=== PATIENT | female | born 1950 | race Caucasian/White ===

== ENCOUNTER → 2016-08-05 | Outpatient (CLI) | payer MEDICARE ==
--- NOTE | 2016-08-05 09:00 | CT ---
EXAM DESCRIPTION: CT ABDOMEN PELVIS WITHOUT IV CONTRAST CLINICAL HISTORY: LEFT LOWER QUADRANT PAIN COMPARISON: None. TECHNIQUE: Transaxial images were obtained without intravenous or oral contrast media. Sagittal and coronal reconstruction was performed. FINDINGS: Minimal atelectatic type parenchymal changes observed at the right lung base. The liver and spleen are normal in appearance. No biliary ductal dilatation is observed. The gallbladder is been previously removed. Surgical clips are seen in the region of the gallbladder fossa. No adrenal masses are detected. The pancreas is normal in appearance. Mild cortical atrophy is observed in the right kidney. No hydronephrosis mass cyst or calcification is detected. Calcific atherosclerotic change is observed in the abdominal aorta without evidence of aneurysmal dilatation. No inguinal region abnormality is detected. Diverticulosis of the colon is observed. There is minimal stranding about the descending colon which may represent early evidence of diverticulitis. No abscess is detected. The patient is post hysterectomy. Degenerative changes are observed the lower lumbar spine. No free fluid is observed. IMPRESSION: 1. Diverticulosis is observed with minimal stranding about descending colon suggesting diverticulitis. No abscess is detected. 2. Cholecystectomy. 3. Hysterectomy Electronically signed by: Ramsey Taylor MD 08/05/2016 08:58
== END ==
LOC: CT 08:26
PROVIDERS: ATTEND Family Medicine
DX: K57.30 Diverticulosis of large intestine without perforation or abscess without bleeding (principal); Z90.49 Acquired absence of other specified parts of digestive tract; Z90.710 Acquired absence of both cervix and uterus

== ENCOUNTER → 2016-08-05 | Outpatient (CLI) | payer MEDICARE | LOC: GMAJ 10:16 | PROVIDERS: ATTEND Family Medicine | DX: R53.82 Chronic fatigue, unspecified (principal); E55.9 Vitamin D deficiency, unspecified ==

== ENCOUNTER → 2016-08-15 | Outpatient (CLI) | payer MEDICARE ==
--- NOTE | 2016-08-16 10:55 | CT ---
EXAM DESCRIPTION: CT HEAD WITHOUT IV CONTRAST CLINICAL HISTORY: 66 y/o F, HEADACHE COMPARISON: None. TECHNIQUE: Noncontrast spiral CT of the brain. FINDINGS: No intracranial hemorrhage, acute cortical infarction or mass lesion. White matter disease with patchy and confluent decreased density throughout the bilateral cerebral hemispheres, nonspecific likely a manifestation of remote microvascular ischemia. Atherosclerotic vascular calcifications of the cavernous carotid arteries Ventricles are normal in size and configuration No calvarial or skullbase fracture. No fluid in the paranasal sinuses or mastoid air cells IMPRESSION: White matter disease, nonspecific most likely remote microvascular ischemia Electronically signed by: Jese Hardin MD 08/16/2016 10:53
== END ==
LOC: CT 09:55
PROVIDERS: ATTEND Family Medicine
DX: R51 Headache (principal); R90.82 White matter disease, unspecified

== ENCOUNTER → 2016-11-03 | Outpatient (CLI) | payer MEDICARE | END | disposition home or self-care (01) | LOC: GMA 12:38 | PROVIDERS: ATTEND Nurse Practitioner Acute Care | DX: L65.8 Other specified nonscarring hair loss (principal); E53.9 Vitamin B deficiency, unspecified; E55.9 Vitamin D deficiency, unspecified ==

== ENCOUNTER → 2016-11-21 | Outpatient (CLI) | payer OTHER ==
--- NOTE | 2016-11-21 15:51 | MAM ---
History: Well woman exam. Date of exam: 11/21/2016 Services provided: Bilateral full field digital screening mammography. CAD, the images were reviewed with R2 computer aided detection. FINDINGS: Glandular tissue is nodular in contour with slightly increased mammographic density. No prior study is currently available for comparison. A right breast medial mammographic asymmetry approximately 6 cm from the nipple right breast 3-4 o'clock and left breast nodular asymmetry approximately 3 to 4 cm from the nipple retroareolar 1:00 IMPRESSION: Incomplete study Recommendation: Directed bilateral breast sonography, right breast 3-4 o'clock retroareolar and deep within the glandular tissue and left breast 12-1 o'clock periareolar. BIRAD CATEGORY: 0 INCOMPLETE Electronically signed by: Kelsea Adamson MD 11/21/2016 3:45 PM CDT
== END | disposition home or self-care (01) ==
LOC: MAMMO 10:59
PROVIDERS: ATTEND Family Medicine
DX: Z12.31 Encounter for screening mammogram for malignant neoplasm of breast (principal)

== ENCOUNTER → 2017-01-05 | Outpatient (CLI) | payer OTHER | LOC: GMA 14:51 | PROVIDERS: ATTEND Nurse Practitioner Acute Care | DX: N39.0 Urinary tract infection, site not specified (principal) ==

== ENCOUNTER → 2017-01-12 | Outpatient (CLI) | payer OTHER ==
--- NOTE | 2017-01-12 16:42 | US ---
History: Bilateral breast nodules. Services: 01/12/2017 Services provided: Bilateral targeted Limited breast sonography. FINDINGS: Mammogram from 11/21/2016 is reviewed. Left breast periareolar 1:00 10 mm nodule is shown with internal vascularity. The nodule is isoechoic and well defined. Differential considerations include papilloma or fibroadenoma. The risk for malignancy is felt to be less likely but included for completeness. Right breast periareolar 3:00 10 mm nodule deep within the glandular tissue has irregular margination and dense posterior acoustic shadowing. Surrounding vascularity is shown without definite internal vascularity seen. Adjacent simple cyst more ventrally. Sonographic and mammographic appearance are suspicious for malignancy. IMPRESSION: Suspicious exam. Recommendation: Ultrasound-guided needle sampling right breast periareolar nodule 3:00 and left breast periareolar nodule 1:00 with differential considerations for each outlined in the body of the report. Findings and recommendations were discussed with the patient who is leaving for a one week vacation with her family. Upon her return she will follow up with Dr. Jeffery. BIRAD CATEGORY: 4 SUSPICIOUS FINDINGS Electronically signed by: Kelsea Adamson MD 01/12/2017 4:41 PM CDT Workstation: [id number]
== END | disposition home or self-care (01) ==
LOC: MAMMO 15:22
PROVIDERS: ATTEND Family Medicine
DX: Z12.31 Encounter for screening mammogram for malignant neoplasm of breast (principal)

== ENCOUNTER → 2017-02-03 | Outpatient (CLI) | payer OTHER ==
--- NOTE | 2017-02-03 13:23 | OP ---
DATE OF PROCEDURE: 02/03/17 PREOPERATIVE DIAGNOSIS: 1. Abnormal bilateral mammogram with solid masses. POSTOPERATIVE DIAGNOSIS: 1. Abnormal bilateral mammogram with solid masses. PROCEDURE: 1. Sonographically guided needle core biopsy, right and left breast mass. SURGEON: Kristopher Jeffery MD. WATER ENGINEER: None. ANESTHESIA: Local infiltration of 1% lidocaine. INDICATION: The patient is a 66-year-old female who on routine mammography was found to have masses in both breasts. She is status post cyst aspirations bilaterally and excision of benign lesion I believe on the left breast previously. She was brought to the Radiology Suite for ultrasound guided biopsy after the risks, benefits and alternatives to the procedure were discussed and accepted. FINDINGS: Cores were taken in both breasts which were identified from the mass using the ultrasound device. Pathology is pending. PROCEDURE: The patient is placed in the supine position. The right breast was examined and the mass was identified deep to a benign cyst. The breast was prepped with Betadine lateral to the ultrasound device and draped. Local infiltration of anesthesia was obtained. A stab wound was made with a 15 blade. The biopsy needle was then introduced under direct vision of the ultrasound, introduced to the mass and multiple cores were taken. Hemostasis was obtained with pressure, then a single 4-0 simple suture at the skin. When this was done, a band-aid was placed over the incision. New gloves and biopsy needle were obtained. The left breast was identified, the mass was identified. The breast lateral to the ultrasound device was prepped with Betadine and draped. Local infiltration of anesthesia was again obtained. Again, a stab wound was made with a 15 blade and, again, the biopsy needle was introduced under direct vision of the ultrasound device to the mass where the needles were taken. Again, hemostasis was obtained with pressure and a single suture of 4-0 Nylon. Sterile pressure dressing was applied. The specimens were sent for pathologic evaluation. The patient tolerated the procedure well. Estimated blood loss was less than 10 mL. #[id number] [facility]
--- NOTE | 2017-02-03 16:34 | US ---
History: Bilateral breast nodules. Ultrasound-guided biopsy: A total of 18 images are submitted. The images are labeled right breast 3:00 and left breast 1:00. The study demonstrates a needle traversing each at the sonographic nodules, the extent of the needle on the right breast 3:00 distally is difficult to assess however the needle does appear to traverse the nodule. No significant complication is demonstrated on the images provided. IMPRESSION: Technically successful ultrasound-guided biopsy right breast nodule 3:00 and left breast nodule 1:00, performed by the patient's surgeon. Electronically signed by: Kelsea Adamson MD 02/03/2017 4:33 PM CDT Workstation: [id number]
== END ==
LOC: US 11:23
PROVIDERS: ATTEND Surgery
DX: R92.8 Other abnormal and inconclusive findings on diagnostic imaging of breast (principal)

== ENCOUNTER → 2017-02-08 | Outpatient (CLI) | payer OTHER ==
--- NOTE | 2017-02-09 09:09 | RAD ---
EXAM DESCRIPTION: Chest,2 Views CLINICAL HISTORY: 66 years Female, MALIGNANT NEOPLASM OF UIQ OF RIGHT BREAST. C50.211 COMPARISON: None Available TECHNIQUE: PA/lateral FINDINGS: Minimal right basilar atelectatic type lung disease is observed. No pleural fluid is seen. The heart is within range of normal. IMPRESSION: Right basilar atelectatic type lung disease is observed. The chest is otherwise unremarkable. Electronically signed by: Ramsey Taylor MD 02/09/2017 9:08 AM CDT
== END ==
LOC: LAB.O 13:13
PROVIDERS: ATTEND Surgery
DX: C50.211 Malignant neoplasm of upper-inner quadrant of right female breast (principal)

== ENCOUNTER → 2017-02-09 | Outpatient (CLI) | payer OTHER ==
--- NOTE | 2017-02-09 14:33 | MRI ---
EXAM DESCRIPTION: Brain w/wo Contrast CLINICAL HISTORY: RT BREAST CA UIQ COMPARISON: None TECHNIQUE: Multiplanar, multi sequence MR images of the head are obtained with and without IV gadolinium contrast using standard imaging protocol. FINDINGS: The midline structures are not displaced. Sulci are age appropriate. The lateral, third, and fourth ventricles are normal in size, shape, and anatomic positioning. Normal landers-white differentiation is seen. Normal flow voids are seen in the major intracranial vessels including the dural venous sinuses. There is no evidence of mass, mass effect, hydrocephalus, or acute intracranial hemorrhage. No abnormal extra-axial fluid collections are seen. Moderate scattered foci of increased FLAIR/T2 signal are seen in the periventricular white matter and white matter of the centrum semiovale. Patchy increased FLAIR and T2 signal in the shine is seen. No diffusion restriction is identified. No abnormal enhancement is seen. Gradient echo unremarkable. The pituitary is unremarkable. Visualized paranasal sinuses are unremarkable. The visualized orbits and mastoid air cells are unremarkable. IMPRESSION: Age-appropriate atrophy with moderate old small vessel ischemic type changes are seen. No MRI evidence of metastatic disease to the brain. No MRI evidence of acute intracranial ischemia, mass, mass effect, or abnormal enhancement. Electronically signed by: Dez Landaverde MD 02/09/2017 2:32 PM CDT
--- NOTE | 2017-02-09 16:38 | NM ---
EXAM DESCRIPTION: Bone Scan, Whole Body CLINICAL HISTORY: RT BREAST CA COMPARISON: None Available. RADIOPHARMACEUTICAL: 28.5 mCi technetium 99 M MDP IV FINDINGS: Total body imaging was obtained. Minimal uptake is observed in the joints and spine consistent with arthritis. No evidence for fracture or metastatic disease is observed. IMPRESSION: 1. Negative for metastatic disease. Electronically signed by: Ramsey Taylor MD 02/09/2017 4:36 PM CDT
== END ==
LOC: NM 08:09
PROVIDERS: ATTEND Surgery
DX: C50.211 Malignant neoplasm of upper-inner quadrant of right female breast (principal)

== ENCOUNTER 2017-02-20 05:48 | Inpatient (IN) | payer OTHER ==
[2017-02-20] MEDS ORDERED: LACTATED RINGERS 1,000 ML ONE (06:27)
[2017-02-20] MEDS ORDERED: SODIUM CHL 0.9% 100ML MINI-BAG 100 ML IVPB ONE ×2 (06:27→11:50)
[2017-02-20] MEDS ORDERED: ceFAZolin SODIUM 1 GM VIAL ONE ×4 (06:28→19:14)
[2017-02-20] MEDS ORDERED: LACTATED RINGERS 1,000 ML BAG IVS ONE (07:45)
[2017-02-20] MEDS ORDERED: MIDAZOLAM INJ 5 MG/5 ML VIAL ONE (08:23)
[2017-02-20] MEDS ORDERED: CARBOXYMETHYLCELLULOSE 0.5% OPHTH SOL 0.4 ML UD ONE (08:23)
[2017-02-20] MEDS ORDERED: fentaNYL CITRATE INJ 50 MCG/ML AMP ONE (08:23)
--- NOTE | 2017-02-20 09:14 | HP ---
CHIEF COMPLAINT: Biopsy-proven carcinoma of the right breast. HISTORY OF PRESENT ILLNESS: The patient is a 66-year-old female who has a long history of multiple aspiration, but no breast biopsies that were anything that were cysts. She had an abnormal mammogram and underwent a needle core biopsy of a right breast lesion which revealed invasive carcinoma. She is admitted today for right modified radical mastectomy after the risks, benefits and alternatives including lumpectomy with either lymph node dissection with sentinel node biopsy and radiation therapy versus mastectomy with sentinel node biopsy versus modified radical mastectomy were discussed. PAST MEDICAL HISTORY: 1. Hypertension. 2. Chronic renal disease. 3. Chronic urinary tract infections. 4. Osteoarthritis. 5. Gastroesophageal reflux. PAST SURGICAL HISTORY: 1. Tonsillectomy. 2. Appendectomy. 3. Partial hysterectomy. 4. Cholecystectomy. 5. Colonoscopy. 6. Breast biopsy. FAMILY HISTORY: Positive for carcinoma of the colon in a 47-year-old sister who . SOCIAL HISTORY: The patient is , retired from working at a bank. There is no history of tobacco or alcohol abuse. No history of drug abuse. PHYSICAL EXAMINATION: GENERAL: The patient is awake, alert, cooperative, in no acute distress. VITAL SIGNS: The patient is currently afebrile, normotensive. HEENT: Sclerae nonicteric. Mucous membranes moist. NECK: Without adenopathy. There is no supraclavicular or axillary adenopathy noted. CHEST: Equal breath sounds bilaterally. HEART: Regular rate and rhythm. BREAST: The left breast is without skin lesion, mass or nipple discharge. The right breast reveals no discrete mass, no nipple discharge or skin changes. There is a healing needle core biopsy site at approximately 12 o'clock position. ABDOMEN: Without organomegaly or tenderness. PELVIC/RECTAL: Deferred. EXTREMITIES: Without cyanosis, clubbing or edema. LABORATORY: Clear urinalysis. Normal liver function tests. Normal bone scan. Clear chest x-ray. EKG reveals bradycardia at 58 beats per minute. ASSESSMENT: 1. Biopsy-prove carcinoma of the right breast. PLAN: Admission for right modified radical mastectomy under general anesthesia. #[id number] [facility]
[2017-02-20] MEDS ORDERED: ACETAMINOPHEN IV 1000MG 100 ML ONE (09:16)
[2017-02-20] MEDS ORDERED: HYDROmorphone HCL INJ 2 MG/ML VIAL ONE (09:39)
[2017-02-20] MEDS ORDERED: ELECTROLYTE-A 1,000 ML IVS ONE (10:13)
[2017-02-20] MEDS ORDERED: MORPHINE SULFATE INJ 10 MG/ML VIAL IV PRN (11:03)
[2017-02-20] MEDS ORDERED: HYDROcodone 5MG/APAP 325MG 1 EA TAB PO PRN (11:03)
[2017-02-20] MEDS ORDERED: ONDANSETRON INJ 4 MG/2 ML VIAL IV PRN (11:03)
[2017-02-20] MEDS ORDERED: LACTATED RINGERS 1,000 ML IVS ONE (11:08)
[2017-02-20] MEDS ORDERED: PANTOPRAZOLE SODIUM IV 40 MG VIAL IV SCH (11:30)
[2017-02-20] MEDS: ceFAZolin SODIUM 2 GM in SODIUM CHLORIDE 0.9% 100ML 100 ML IVPB SCH ×2 (11:45→18:08)
[2017-02-20] MEDS ORDERED: ceFAZolin SODIUM 1 GM VIAL IVPB ONE (11:55)
[2017-02-20] MEDS ORDERED: LIDOCAINE 1% 10 ML VIAL INJ ONE (12:00)
[2017-02-20] MEDS ORDERED: DEXAMETHASONE INJ 10 MG/ML VIAL IV ONE (12:00)
[2017-02-20] MEDS ORDERED: PROPOFOL 200 MG/20 ML VIAL IV ONE (12:00)
[2017-02-20] MEDS ORDERED: PHENYLEPHRINE INJ 1ML 10 MG/ML VIAL IV ONE (12:00)
[2017-02-20] MEDS ORDERED: raNITIdine HCL INJ 25 MG/ML VIAL IV ONE (12:00)
[2017-02-20] MEDS ORDERED: SODIUM CHLORIDE 0.9% 50 ML VIAL INJ ONE (12:00)
[2017-02-20] MEDS ORDERED: KETOROLAC TROMETHAMINE INJ 30 MG/ML VIAL IV ONE (12:00)
[2017-02-20] MEDS ORDERED: ePHEDrine SULF 50 MG/ML IV ONE (12:00)
[2017-02-20] MEDS ORDERED: GLYCOPYRROLATE 0.2 MG/ML VIAL IV ONE (12:00)
[2017-02-20] MEDS ORDERED: PANTOPRAZOLE SODIUM IV 40 MG VIAL IV ONE (12:03)
[2017-02-20] MEDS: ENOXAPARIN SODIUM 40 MG/0.4 ML SYG SUBCU SCH (12:04)
[2017-02-20] MEDS ORDERED: ENOXAPARIN SODIUM 40 MG/0.4 ML SYG SUBCU ONE (12:04)
[2017-02-20] MEDS: cefOXitin SODIUM 2 GM in SODIUM CHL 0.9% 50ML MIN-BAG+ 50 ML IVPB SCH ×2 (13:00→19:39)
[2017-02-20] MEDS ORDERED: SODIUM CHLORIDE 0.9% (FLUSH) 10 ML SYG IV PRN (13:02)
[2017-02-20] MEDS ORDERED: SODIUM CHL 0.9% 50ML MIN-BAG+ 50 ML IVPB ONE ×3 (13:08→19:17)
[2017-02-20] MEDS ORDERED: cefOXitin SODIUM 2 GM INJ IVPB ONE ×3 (13:09→19:17)
[2017-02-20] MEDS: LACTATED RINGERS 1,000 ML IVS PRN (13:22)
--- NOTE | 2017-02-20 13:28 | OP ---
DATE OF PROCEDURE: 02/20/17 PREOPERATIVE DIAGNOSIS: 1. Biopsy-proven carcinoma of the right breast. POSTOPERATIVE DIAGNOSIS: 1. Biopsy-proven carcinoma of the right breast. PROCEDURE: 1. Right modified radical mastectomy. SURGEON: Kristopher Jeffery MD. DIVISION OFFICER WEAPONS DEPARTMENT: None. ANESTHESIA: General laryngeal mask. INDICATION: The patient is a 66-year-old female who on routine mammography was found to have bilateral breast lesions. The left biopsy was consistent with a benign lesion and the right lesion at the 3 to 4 o'clock position in the right breast was invasive carcinoma. She was brought to the Surgical Suite today for mastectomy after the risks, benefits and alternatives to all options for treatment of the chest wall were discussed and a negative metastatic workup. FINDINGS: No surprisingly lesions or obvious lymphadenopathy were identified. The nerves were identified in the usual manner. PROCEDURE: After adequate general laryngeal mask anesthesia was obtained, the patient was prepped and draped in the usual sterile manner. The right breast, which had previously been marked in the Ambulatory Unit, was then marked for a mastectomy. The superior flap was then taken, first with a marking pen and then with a sharp knife, dissection down through the skin into the subcutaneous tissue was obtained using electrocautery. The Meena thyroid grasping forceps were then placed on the skin edge and the superior flap was elevated in the usual manner with electrocautery with the margins being the sternal margin medially, the clavipectoral fascia superiorly and into the axilla. When this was done, a moist sponge was placed under the flap and the inferior flap was taken in a like manner down to the rectus sheath inferiorly. When this was done , the breast was dissected free from the chest wall superiorly, medially and then laterally into the axilla. Axillary dissection was then done in the usual manner with the posterior margin being the nerves. The tissue was then removed en bloc using electrocautery and was sent for pathological inspection. The wound was then irrigated copiously with saline. The effluent was noted to be clear. Drains were placed in the usual manner through the inferior flap and sutured in place with 3-0 Nylon ligature. When this was done, hemostasis was noted to be adequate. The flaps were sutured together with running 3-0 Vicryl suture in the subcutaneous tissues. The skin edges were approximated with a skin stapler. Prior to the skin stapling, the wound was irrigated through the incision and aspirated with the drains. When this was done, a sterile pressure dressing was applied. The patient tolerated well. Estimated blood loss was no greater than 100 to 150 mL. All sponge, needle and instrument counts were correct. [facility][id number] [facility]
[2017-02-20] MEDS ORDERED: IV SET AND CAP CHANGE INJ INJ SCH (13:30)
--- NOTE | 2017-02-20 15:14 | CONS ---
DATE OF CONSULTATION: 02/20/17 HISTORY OF PRESENT ILLNESS: This 66-year-old, white female was admitted to the hospital earlier this morning for elective right modified radical mastectomy because of biopsy-proven invasive carcinoma of the right breast. No previous history of cancer has been noted. She did have a noncancerous diagnosis with biopsy on the left breast, but has a very strong family history of cancer in her past. Surgical procedure was successfully performed by Dr. Jeffery earlier today and the patient tolerated the procedure quite well. She is now postoperative and is able to communicate nicely and is fully awake and alert, taking fluids quite well. Her last bowel movement was yesterday and she had two. No shortness of breath. Mild hoarseness is evident from anesthesia. Otherwise, tolerating the immediate postoperative time quite well. PAST MEDICAL HISTORY: 1. Depression. 2. Hypertension. 3. Chronic renal disease. 4. Recurring urinary tract infections. 5. Osteoarthritis. 6. Gastroesophageal reflux disease. 7. Right sided invasive breast cancer. PAST SURGICAL HISTORY: 1. Appendectomy. 2. Cholecystectomy. 3. Hysterectomy. 4. Right modified radical mastectomy. FAMILY HISTORY: Positive for coronary artery disease and significant cancer with grandfather with throat cancer. Father age 81 of lung cancer, but also had prostate cancer and a sister who was a few years older than her of colon cancer. SOCIAL HISTORY: She has worked in the [employer] industry. She has never smoked, but has breathed secondhand smoke when a child. REVIEW OF SYSTEMS: GENERAL: No significant weight change, fever or chills. HEENT: No hearing or visual disturbances. She does wear glasses. LUNGS: No significant shortness of breath or cough. CARDIOVASCULAR: No palpitations or chest pains. GASTROINTESTINAL: Appetite fairly good. No significant constipation or blood in stools. GENITOURINARY: History of urinary tract infections, but not recently. NEUROLOGIC: No significant focal neurologic deficits. No significant headaches. She does suffer from depression, helped by her current medication program. PHYSICAL EXAMINATION: VITAL SIGNS: Afebrile. Pulse 75. Blood pressure 145/76. Respirations 19. Pulse oximetry 98% on 2 liters. Weight 69.4 kg. GENERAL: The patient is awake, alert and communicative. She is well versed and has good memory. Her is also present to assist with past history. HEENT: Within normal limits. NECK: Supple with no carotid bruits. Pulses seem to be fairly even and no specific thyroid enlargement evident. LUNGS: Generally clear. CARDIOVASCULAR: Heart tones are within normal limits. No significant gallops. ABDOMEN: Soft with no organomegaly, masses or tenderness. There is a compression dressing around her chest and at least [address] place, placed there at the time of surgery. These are being attended to closely by the nursing staff. EXTREMITIES: Well-formed with SCD in place. LABORATORY: Recent white count 8,000, hemoglobin 13.8. Chemistries showed potassium borderline low at 3.7. BUN 20, creatinine 1, glucose 132. Liver enzymes normal. Carcinogenic embryonic antigen is 0.5 and CA27-29 is 31. Urinalysis preoperative was generally within normal limits. Path reports were reviewed and they do reveal an invasive carcinoma in the right breast necessitating the modified radical mastectomy performed earlier today. MR of the brain performed before surgery revealed no evidence of metastatic disease. ASSESSMENT: 1. Right invasive breast cancer requiring right modified radical mastectomy with sentinel node removed to assist with staging. 2. History of hypertension on medication treatment. 3. Chronic renal disease, requiring further followup. 4. Recurrent urinary tract infections, currently symptom free. 5. History of osteoarthritis. 6. History of gastroesophageal reflux disease with occasional symptoms of heartburn. 7. Chronic depression on medication treatment which seems to help. 8. Strong family history of cancer. PLAN: The patient will be continued on many of her home medications, please refer to medication list. Close followup for her blood pressure. Continue with care of the bulb drains to assist in preventing hematoma or seroma accumulation. Await path reports. Continue with increased activity level under Dr. Jeffery's continued observation and be able to return home when stabilized and when safe to do so. [facility][id number] [facility]
[2017-02-20] MEDS ORDERED: SODIUM CHLORIDE 0.9% 100ML 100 ML IVPB ONE ×2 (17:32→19:14)
[2017-02-20] MEDS ORDERED: CITALOPRAM HBR 20 MG TAB ONE (19:12)
[2017-02-20] MEDS ORDERED: ATENOLOL 25 MG TAB ONE (19:13)
[2017-02-20] MEDS ORDERED: PANTOPRAZOLE SODIUM TAB 40 MG PO ONE (19:13)
[2017-02-20] MEDS ORDERED: MELATONIN 3 MG TAB ONE (19:14)
[2017-02-20] MEDS: AMITRIPTYLINE PO SCH ×2 (20:30→21:00)
[2017-02-20] MEDS: PANTOPRAZOLE SODIUM TAB 40 MG PO SCH (20:30)
[2017-02-20] MEDS: CHLORDIAZEPOXIDE PO SCH ×2 (20:30→21:00)
[2017-02-20] MEDS: [UNRECOGNIZED DRUG - OTHER] PO SCH ×2 (20:30→21:00)
[2017-02-20] MEDS: ATENOLOL 25 MG TAB PO SCH (20:30)
[2017-02-20] MEDS ORDERED: MELATONIN 3 MG TAB PO SCH (21:00)
[2017-02-20] MEDS ORDERED: CITALOPRAM HBR 20 MG TAB PO SCH (21:00)
[2017-02-21] MEDS: LACTATED RINGERS 1,000 ML IVS PRN (00:59)
[2017-02-21] MEDS: ceFAZolin SODIUM 2 GM in SODIUM CHLORIDE 0.9% 100ML 100 ML IVPB SCH ×3 (02:50→18:18)
[2017-02-21] MEDS: cefOXitin SODIUM 2 GM in SODIUM CHL 0.9% 50ML MIN-BAG+ 50 ML IVPB SCH ×3 (04:18→19:51)
[2017-02-21] MEDS: amLODIPine BESYLATE 5 MG TAB PO SCH (09:17)
[2017-02-21] MEDS ORDERED: ceFAZolin SODIUM 1 GM VIAL ONE ×3 (09:56→19:27)
[2017-02-21] MEDS ORDERED: SODIUM CHLORIDE 0.9% 100ML 100 ML IVPB ONE ×3 (09:56→19:27)
[2017-02-21] MEDS ORDERED: MELATONIN 3 MG TAB PO SCH (10:54)
[2017-02-21] MEDS ORDERED: ACETAMINOPHEN 325 MG TAB PO PRN (10:54)
[2017-02-21] MEDS ORDERED: SODIUM CHL 0.9% 50ML MIN-BAG+ 50 ML IVPB ONE ×3 (11:14→19:30)
[2017-02-21] MEDS ORDERED: cefOXitin SODIUM 2 GM INJ IVPB ONE ×3 (11:15→19:30)
[2017-02-21] MEDS: ENOXAPARIN SODIUM 40 MG/0.4 ML SYG SUBCU SCH (11:22)
--- NOTE | 2017-02-21 11:24 | PN ---
DATE: 02/21/17 SUBJECTIVE: The patient is sitting up in the bed and in many ways is feeling better. She is tolerating increased deep inspiratory efforts in an effort to keep her lower lung borja open. She was not able to tolerate the SCDs for some reason during the night and these have been stopped. Of concern is that about 4 o'clock this morning she became very confused. This was after she had received some hydrocodone. Whether this is reacting with some of the postanesthesia medications is to be considered. She was up wandering, did not know where she was, and otherwise did not hurt herself fortunately. She is much more alert and communicative at this time. Her was also present and he was also able to assist her. She had some visual hallucinations noted which need to be observed for to prevent its recurrence. OBJECTIVE: VITAL SIGNS: Afebrile. Pulse 72. Blood pressure 129/75. Pulse oximetry 98% on room air. Weight unchanged. LUNGS: Clear. HEART: Tones are regular. Compression dressing across the chest is in place and drainage continues to be measured with slightly decreased volume with analysis to be continued tomorrow. ABDOMEN: Soft. EXTREMITIES: Nontender with no significant edema. NEUROLOGIC: The patient is awake and alert at this time with history of recent marked confusion, possibly medication related. ASSESSMENT: 1. Postoperative day #1, right modified radical mastectomy with sentinel node removed to assist with staging for biopsy-proven invasive breast cancer. 2. History of hypertension on medication. 3. Acute confusion with visual hallucinations, probably medication induced with hydrocodone being stopped and close followup and switching to Tylenol instead. 4. Chronic renal disease with followup. 5. History of urinary tract infections, currently stable. 6. History of osteoarthritis. 7. History of gastroesophageal reflux disease with heartburn in the past. 8. Chronic depression on medication treatment. 9. Strong family history of cancer which may lead to the oncologist's suggestion of removing the left breast and the patient and the are definitely willing to have the breast removed prophylactically. PLAN: The patient will have continued therapy with increased activity today. Her diet is to be increased to a regular diet and observe. Stop the hydrocodone and continue with Tylenol 650 as needed for pain relief, which has helped her in the past. If the patient is tolerating diet and increased activity level and bulb drainage is lessening by tomorrow, we will consider continuing with outpatient therapy with Dr. Jeffery in the clinic. Close observation necessary. [facility][id number] [facility]
[2017-02-21] MEDS: ATENOLOL 25 MG TAB PO SCH ×2 (18:38→20:36)
[2017-02-21] MEDS: PANTOPRAZOLE SODIUM TAB 40 MG PO SCH (20:36)
[2017-02-21] MEDS ORDERED: [UNRECOGNIZED DRUG - OTHER] PO SCH (21:00)
[2017-02-21] MEDS ORDERED: CHLORDIAZEPOXIDE PO SCH (21:00)
[2017-02-21] MEDS ORDERED: AMITRIPTYLINE PO SCH (21:00)
[2017-02-22] MEDS: ceFAZolin SODIUM 2 GM in SODIUM CHLORIDE 0.9% 100ML 100 ML IVPB SCH (03:05)
[2017-02-22] MEDS: cefOXitin SODIUM 2 GM in SODIUM CHL 0.9% 50ML MIN-BAG+ 50 ML IVPB SCH (04:08)
[2017-02-22] MEDS ORDERED: CITALOPRAM HBR 20 MG TAB ONE (07:46)
[2017-02-22] MEDS ORDERED: MAGNESIUM OXIDE 400 MG TAB ONE (08:05)
[2017-02-22] MEDS: amLODIPine BESYLATE 5 MG TAB PO SCH (08:19)
[2017-02-22] MEDS ORDERED: SODIUM CHLORIDE 0.9% (FLUSH) 10 ML SYG IV SCH (09:00)
[2017-02-22] MEDS ORDERED: CITALOPRAM HBR 20 MG TAB PO SCH (09:00)
[2017-02-22 09:51] VITALS: BP 163/79; TEMP 97.7; O2SAT 92
--- NOTE | 2017-02-22 10:56 | DS ---
FINAL DIAGNOSIS: 1. Carcinoma of the right breast with pathology pending. SURGICAL PROCEDURE: 1. Right modified radical mastectomy. HISTORY OF PRESENT ILLNESS: The patient is a 66-year-old female who has a long history of multiple aspiration, but no breast biopsies that were anything that were cysts. She had an abnormal mammogram and underwent a needle core biopsy of a right breast lesion which revealed invasive carcinoma. She is admitted today for right modified radical mastectomy after the risks, benefits and alternatives including lumpectomy with either lymph node dissection with sentinel node biopsy and radiation therapy versus mastectomy with sentinel node biopsy versus modified radical mastectomy were discussed. LABORATORY: On the first postoperative day, her hemoglobin was stable at 12.7. White count 13.4. She had 91% neutrophils and platelet count 222,000. Pathology is pending. HOSPITAL COURSE: The patient was admitted to the Surgical Suite where she underwent the mastectomy. Postoperatively, she had some confusion the first postoperative night, especially after taking some hydrocodone. This completely resolved by the first postoperative day. Fitzgerald catheter was discontinued the first thing on the first postoperative day. She was tolerating clear liquids and advanced to a regular diet. She had a bowel movement. Her IV was heparin locked. By the second postoperative morning, a dressing change was performed which revealed excellent healthy flaps, serosanguineous in the JEROD that was relatively large, around 150 between the two. After the dressing change, she was discharged home. CONDITION ON DISCHARGE: Good. DISPOSITION: The patient will followup in my office in five days or sooner p.r.n. She is discharged on her regular diet, on her regular home medications. No new medications are prescribed. A home health consultation will be obtained from [facility] to do daily dressing changes and to milk the JEROD drains. Her is to call the office in the morning with the drainage from now until tomorrow morning. He also knows to call if she has other problems including pain not controlled with Tylenol or has other questions or problems. #[id number] [facility]
== END 2017-02-22 11:34 | disposition home or self-care (01) | DRG 581 ==
LOC: AMB 05:48 → MS 12:30
PROVIDERS: ADMIT Surgery; ATTEND Surgery
PROC: 07B50ZX Excision of Right Axillary Lymphatic, Open Approach, Diagnostic (ICD-10-PCS; 2017-02-20)
PROC: 0HTT0ZZ Resection of Right Breast, Open Approach (ICD-10-PCS; principal; 2017-02-20 08:29)
DX: C50.211 Malignant neoplasm of upper-inner quadrant of right female breast (principal); R44.1 Visual hallucinations; R41.0 Disorientation, unspecified; T40.2X5A Adverse effect of other opioids, initial encounter; K21.9 Gastro-esophageal reflux disease without esophagitis; M19.90 Unspecified osteoarthritis, unspecified site; I12.9 Hypertensive chronic kidney disease with stage 1 through stage 4 chronic kidney disease, or unspecified chronic kidney disease; N18.9 Chronic kidney disease, unspecified; F32.9 Major depressive disorder, single episode, unspecified; Z80.3 Family history of malignant neoplasm of breast; Z88.1 Allergy status to other antibiotic agents; Z87.440 Personal history of urinary (tract) infections; Z79.899 Other long term (current) drug therapy; Y92.230 Patient room in hospital as the place of occurrence of the external cause

== ENCOUNTER → 2017-08-29 | Outpatient (CLI) | payer OTHER | LOC: GMAJ 10:47 | PROVIDERS: ATTEND Family Medicine | DX: I10 Essential (primary) hypertension (principal) ==

== ENCOUNTER 2017-09-14 16:43 | Inpatient (IN) | payer OTHER ==
--- NOTE | 2017-09-14 16:44 | HP ---
SUPERVISING PHYSICIAN: Jese Caban M.D. CHIEF COMPLAINT: Diarrhea and dysuria. HISTORY OF PRESENT ILLNESS: Ms. Ward is a 67 year-old female patient that was referred for direct admission from Dr. Maynard' office secondary to having failed to respond to outpatient treatment for an underlying urinary tract infection. The patient was seen this past week, Monday, and was found to have a urinary tract infection, and started on Ciprofloxacin. Urine culture came back today and showed to be highly resistant Escherichia coli being resistant to Ciprofloxacin and Levaquin. The patient continues to have some dysuria but now has had a new onset of diarrhea and excessive bloating. She noted that a day after starting her Ciprofloxacin she started having uncontrollable diarrhea but denied any nausea. She was denying any abdominal pains or any blood in her stools. She is now being admitted to the Medical/ Surgical floor for ongoing treatment of resistant organism causing the urinary tract infection needing parenteral antibiotics having failed to respond to p.o. medications along with possible antibiotic associated diarrhea. PAST MEDICAL HISTORY: 1. Depression. 2. Hypertension. 3. Chronic renal disease with last baseline creatinine showing to be 1.3. 4. Mitral valve prolapse. 5. History of breast cancer diagnosed in 2017 requiring mastectomy the same year on the right side. 6. Osteoarthritis. 7. Gastroesophageal reflux disease. PAST SURGICAL HISTORY: 1. Right modified radical mastectomy in January 2017. 2. Appendectomy. 3. Cholecystectomy. 4. Hysterectomy. CURRENT MEDICATIONS: 1. Vitamin D3 5,000 units daily. 2. Limbitrol 5/12.5 two at bedtime. 3. Pantoprazole sodium 40 mg daily. 4. Chlorthalidone 25 mg daily. 5. Pravastatin 40 mg at bedtime. 6. Arimidex 1 mg at bedtime. 7. Melatonin 5 mg at bedtime. 8. Atenolol 100 mg b.i.d. 9. Aspirin low dose 81 mg daily. 10. Amlodipine 5 mg daily. 11. Citalopram Hydrobromide 10 mg daily. 12. Multivitamin 1 tablet daily. 13. Vitamin B complex 1 tablet daily. 14. Biotin 1,000 mcg daily. 15. Potassium chloride 80 mEq b.i.d. ALLERGIES: AZITHROMYCIN, NORCO AND ERYTHROMYCIN. FAMILY HISTORY: Positive for coronary artery disease and significant cancers with grandfather having throat cancer. Father at age 81 due to lung cancer but also had prostate cancer. She has a sister who is a few years older than she was who of colon cancer. SOCIAL HISTORY: The patient has worked in the [employer] industry. She has never smoked tobacco but has been exposed to second hand smoke as a child. Denies any illicit drug or alcohol usage. REVIEW OF SYSTEMS: CONSTITUTIONAL: Denies any weight change, fever or chills or general malaise. HEENT: No hearing or vision disturbances. No nasal congestion, sore throat or ear aches. RESPIRATORY: Denies any shortness of breath or coughing, CARDIOVASCULAR: Denies any palpitations, chest pain or syncopal episodes. GASTROINTESTINAL: As noted in history of present illness, significant for diarrhea. No reported blood. No abdominal pain or tenderness. GENITOURINARY: As noted in history of present illness, chronic urinary tract infections with continued dysuria having failed to respond to outpatient treatment in the last week. NEUROLOGIC: No significant focal neurological deficits. No significant headaches. PHYSICAL EXAMINATION: VITAL SIGNS: Temperature 97.9, pulse 68, blood pressure 162/72, respirations 20 , satting 97% on room air. Admission weight is 71.3 kg. GENERAL: The patient appears to be in no acute distress, resting comfortably. Alert and oriented. Does appear somewhat dehydrated but well nourished. HEENT: Tympanic membranes are clear bilaterally. Oropharynx is pink. Mucosal membranes are dry. NECK: Supple, non-tender with full range of motion. No jugular venous distention. CHEST: Lungs are clear to auscultation bilaterally without any rhonchi, wheezing or rales. CARDIOVASCULAR: Regular rate and rhythm with no appreciable murmurs, gallops, or rubs. ABDOMEN: Soft,non-tender with hyperactive bowel sounds. No rebound tenderness. No peritoneal signs. EXTREMITIES: No clubbing, cyanosis or edema. NEUROLOGIC: She is alert and oriented times three. Cranial nerves II-XII are grossly intact. Facial features are symmetrical. Extraocular movements are within normal limits. No notable nystagmus. LABORATORY: CBC shows white count 8,100 with a normal differential. Hemoglobin 12.5, hematocrit 36.6 with a normal platelet count of 226,000. Chemistries show a low potassium at 3.1 with BUN 24, creatinine 1.36, glucose 114, lactic acid 1.6. Liver functions show normal limits except for a slightly elevated AST of 43. Repeat urinalysis was pending at time of admission. MICROBIOLOGY: Blood cultures are pending. Urine culture completed on 09/11/17 shows Escherichia coli with a high resistance pattern. RADIOLOGY: No radiographic studies pending at time of admission. ASSESSMENT: 1. Acute cystitis having failed to respond to outpatient treatment plan with Ciprofloxacin with final culture results showing Escherichia coli that was highly resistant to fluoroquinolones only sensitive to parenteral forms of antibiotics with continued dysuria and increasing symptoms. 2. Acute diarrhea questionably associated with antibiotic usage versus viral gastroenteritis. 3. Mild dehydration secondary to ongoing diarrhea. 4. Electrolyte imbalance with hypokalemia secondary to diarrhea and diuretic usage requiring additional supplementation. 5. Chronic renal failure with a baseline creatinine of 1.3 showing slight elevation on admission felt to be secondary to underlying dehydration requiring initiation of IV fluids. 6. History of hypertension. 7. History of gastroesophageal reflux disease. 8. Chronic depression on medication treatment. 9. History of osteoarthritis. 10. History of right sided invasive breast cancer with a recent right modified radical mastectomy in January 2017. PLAN: The patient will be directly admitted to the Medical/Surgical floor for initiation of parenteral antibiotics to include Rocephin based off current sensitivity reports from the clinic. Will start her on Rocephin based off the sensitivity report 1 gram every 12 hours. Will go ahead and start her on some IV fluids with half normal saline with some potassium replacement as well as p.o. potassium to treat the underlying hypokalemia and dehydration. I have ordered stool samples for cultures, Clostridium Difficile, leukocytes and occult blood. Will await culture results to further target antibiotic therapy. Will go ahead and start her on Align given the diarrhea that seems to be associated with the antibiotic usage. She has no remote history of Clostridium Difficile infection and has not been on recent antibiotics other than this week , but will await testing to further rule out any need to treat as such based off results. Will start her on DVT prophylaxis as per protocol. Will resume her home medications once those have been updated and verified. Will anticipate length of stay to be at least 2 to 3 days for full coverage and treatment of the underlying urinary tract infection with parenteral antibiotics. Until clinically stable and able to be discharged, will continue to monitor and treat appropriately. #[id number] [facility]
[2017-09-14] MEDS ORDERED: IV SET AND CAP CHANGE INJ INJ SCH (17:30)
[2017-09-14] MEDS ORDERED: cefTRIAXone SODIUM 1 GM VIAL ONE (17:44)
[2017-09-14] MEDS ORDERED: SODIUM CHL 0.9% 50ML MIN-BAG+ 50 ML IVPB ONE (17:44)
[2017-09-14] MEDS ORDERED: POTASSIUM CHLORIDE 20 MEQ TAB PO ONE (18:49)
--- NOTE | 2017-09-14 19:29 | PCM.CORE ---
Physician DVT/VTE - Nurse DVT Assessment & Total Each Risk Factor Represents 2 Points: Age 60-74, Malignancy (present/past) DVT Assessment Score: 4 - 3-4 High Risk Treatments: Early Ambulation *, Sequential Compression Device Pharmacological: Enoxaparin 40 mg SQ Daily
[2017-09-14] MEDS ORDERED: ENOXAPARIN SODIUM 40 MG/0.4 ML SYG SUBCU SCH (19:30)
[2017-09-14] MEDS ORDERED: ATENOLOL 25 MG TAB ONE (19:59)
[2017-09-14] MEDS ORDERED: POTASSIUM CHLORIDE 20mEq 10ML VIAL ONE (20:02)
[2017-09-14] MEDS ORDERED: SODIUM CHLORIDE 0.45% 1000ML 1,000 ML IVS ONE (20:02)
[2017-09-14] MEDS: POTASSIUM CHLORIDE INJ 20 MEQ 20 MEQ in SODIUM CHLORIDE 0.45% 1000ML 1,000 ML IVS PRN (20:03)
[2017-09-14] MEDS: cefTRIAXone SODIUM 1 GM in SODIUM CHL 0.9% 50ML MIN-BAG+ 50 ML IVPB SCH (20:04)
[2017-09-14] MEDS ORDERED: AMITRIPTYLINE PO SCH (21:00)
[2017-09-14] MEDS ORDERED: NON-FORMULARY MEDICATION 1 EA MIS (Atenolol [Atenolol] 100 MG) PO SCH (21:00)
[2017-09-14] MEDS ORDERED: CHLORDIAZEPOXIDE PO SCH (21:00)
[2017-09-14] MEDS ORDERED: NON-FORMULARY MEDICATION 1 EA MIS (Pravastatin Sodium [Pravastatin Sodium] 40 MG) PO SCH (21:00)
[2017-09-14] MEDS: NON-FORMULARY MEDICATION 1 EA MIS (Potassium Chloride [Micro-K] 8 MEQ) PO SCH ×3 (21:00→21:18)
[2017-09-14] MEDS ORDERED: PRAVASTATIN SODIUM 20 MG TAB ONE (21:04)
[2017-09-14] MEDS: BIFIDOBACTERIUM INFANTIS 4 MG CAP PO SCH (21:05)
[2017-09-14] MEDS: NON-FORMULARY MEDICATION 1 EA MIS (Anastrozole [Arimidex] 1 MG) PO SCH (21:06)
[2017-09-14] MEDS: NON-FORMULARY MEDICATION 1 EA MIS (Melatonin [Melatonin] 5 MG) PO SCH (21:09)
[2017-09-15] MEDS ORDERED: cefTRIAXone SODIUM 1 GM VIAL ONE ×2 (02:54→07:19)
[2017-09-15] MEDS ORDERED: SODIUM CHL 0.9% 50ML MIN-BAG+ 50 ML IVPB ONE ×2 (02:54→07:19)
[2017-09-15] MEDS: cefTRIAXone SODIUM 1 GM in SODIUM CHL 0.9% 50ML MIN-BAG+ 50 ML IVPB SCH ×2 (05:00→16:32)
[2017-09-15] MEDS ORDERED: CITALOPRAM HBR 20 MG TAB ONE (07:18)
[2017-09-15] MEDS ORDERED: B COMPLEX 1 EA TAB ONE (07:18)
[2017-09-15] MEDS ORDERED: ATENOLOL 25 MG TAB ONE (07:18)
[2017-09-15] MEDS ORDERED: CHOLECALCIFEROL 2,000 IU TAB PO ONE (07:19)
[2017-09-15] MEDS: BIFIDOBACTERIUM INFANTIS 4 MG CAP PO SCH ×2 (08:37→21:20)
[2017-09-15] MEDS: NON-FORMULARY MEDICATION 1 EA MIS (Potassium Chloride [Micro-K] 8 MEQ) PO SCH ×2 (08:37→16:32)
[2017-09-15] MEDS: B COMPLEX 1 EA TAB PO SCH (08:37)
[2017-09-15] MEDS: CHOLECALCIFEROL 2,000 IU TAB PO SCH (08:38)
[2017-09-15] MEDS: CITALOPRAM HBR 20 MG TAB PO SCH (08:38)
[2017-09-15] MEDS: ATENOLOL 25 MG TAB PO SCH ×2 (08:38→21:21)
[2017-09-15] MEDS: amLODIPine BESYLATE 5 MG TAB PO SCH (08:38)
[2017-09-15] MEDS: ASPIRIN EC 81 MG TAB PO SCH (08:38)
[2017-09-15] MEDS: PANTOPRAZOLE SODIUM TAB 40 MG PO SCH (08:38)
[2017-09-15] MEDS: MULTIPLE VITAMIN 1 EA TAB PO SCH (08:40)
[2017-09-15] MEDS ORDERED: POTASSIUM CHLORIDE 20mEq 10ML VIAL ONE ×2 (08:50→21:40)
[2017-09-15] MEDS ORDERED: SODIUM CHLORIDE 0.45% 1000ML 1,000 ML IVS ONE ×3 (08:50→21:40)
[2017-09-15] MEDS: POTASSIUM CHLORIDE INJ 20 MEQ 20 MEQ in SODIUM CHLORIDE 0.45% 1000ML 1,000 ML IVS PRN ×2 (08:51→21:43)
[2017-09-15] MEDS ORDERED: BIOTIN 1000 MCG PO SCH (09:00)
--- NOTE | 2017-09-15 17:58 | PN ---
DATE: 09/15/17 SUPERVISING PHYSICIAN: Jese Caban M.D. SUBJECTIVE: The patient still continues to have diarrhea but less frequently. She feels like she is a little bit less weak today. She has remained afebrile. She has had no nausea or vomiting. OBJECTIVE: VITAL SIGNS: Temperature 98.3, pulse 64, blood pressure 141/70, respirations 20, satting 96% on room air. I's and O's show a negative balance of 870 with 230 in, 1100 out. She has had multiple bowel movements. Weight is 72.3 kg. CHEST: Lungs are clear to auscultation. HEART: Regular rate and rhythm. ABDOMEN: Soft, non-tender with hyperactive bowel sounds. EXTREMITIES: No clubbing, cyanosis or edema. NEUROLOGIC: She is alert and oriented times three. LABORATORY STUDIES: Chemistries today show a normal potassium at 3.7 with BUN of 21, creatinine is now down to 1.08. Liver functions all showed to be within normal limits including a normal AST. She did have 1 occult blood that was positive. MICROBIOLOGY: Stool culture is pending. Stool leukocytes show no evidence of fecal WBCs. Clostridium Difficile toxin A and B was negative. She has 2 blood cultures that remain negative. ASSESSMENT: 1. Acute cystitis having failed to respond to outpatient treatment therapy with a history of chronic urinary tract infections with multidrug resistant organisms with the patient having been on Ciprofloxacin with final culture at this time showing Escherichia coli that was highly resistant to fluoroquinolones and only sensitive to parenteral forms of antibiotics with continued dysuria and increase in symptoms prior to admission but showing improvement with initiation of parenteral antibiotics. 2. Acute diarrhea possibly related to antibiotic usage versus a viral gastroenteritis with current stool studies showing no evidence of white cells and Clostridium Difficile being negative. 3. Mild dehydration secondary to diarrhea improving with IV fluids. 4. Electrolyte imbalance with hypokalemia secondary to diarrhea and diuretic usage improving with supplementation. 5. Chronic renal failure with a baseline creatinine of 1.3 showing slight elevation on admission felt to be a prerenal azotemia state from dehydration showing improvement with IV fluids. 6. History of hypertension. 7. History of gastroesophageal reflux disease. 8. Chronic depression on medication treatment. 9. History of osteoarthritis. 10. History of right sided invasive breast cancer with a recent right modified radical mastectomy in January 2017. PLAN: Will continue with IV antibiotics to include Rocephin today. Await final culture results from new sample, although the most recent urine showed to be fairly clean. She will continue on IV fluids. As she advances her oral intake and diarrhea decreases, will titrate her off to saline lock. She continues with additional stool studies pending. Will treat according to those results. Will anticipate probably discharging tomorrow given the patient's clinical progression. Until then, continue to monitor and treat appropriately. #[id number] [facility]
[2017-09-15] MEDS: PRAVASTATIN SODIUM 20 MG TAB PO SCH (21:20)
[2017-09-15] MEDS: CHLORDIAZEPOXIDE PO SCH (21:21)
[2017-09-15] MEDS: ENOXAPARIN SODIUM 40 MG/0.4 ML SYG SUBCU SCH (21:21)
[2017-09-15] MEDS: AMITRIPTYLINE PO SCH (21:21)
[2017-09-15] MEDS: NON-FORMULARY MEDICATION 1 EA MIS (Anastrozole [Arimidex] 1 MG) PO SCH (21:21)
[2017-09-15] MEDS: NON-FORMULARY MEDICATION 1 EA MIS (Melatonin [Melatonin] 5 MG) PO SCH (21:21)
[2017-09-16] MEDS ORDERED: SODIUM CHL 0.9% 50ML MIN-BAG+ 50 ML IVPB ONE ×2 (02:03→16:50)
[2017-09-16] MEDS ORDERED: cefTRIAXone SODIUM 1 GM VIAL ONE ×2 (02:03→16:51)
[2017-09-16] MEDS: cefTRIAXone SODIUM 1 GM in SODIUM CHL 0.9% 50ML MIN-BAG+ 50 ML IVPB SCH ×2 (05:33→17:28)
[2017-09-16] MEDS: PANTOPRAZOLE SODIUM TAB 40 MG PO SCH (06:17)
[2017-09-16] MEDS: NON-FORMULARY MEDICATION 1 EA MIS (Potassium Chloride [Micro-K] 8 MEQ) PO SCH ×2 (07:47→17:27)
[2017-09-16] MEDS: BIFIDOBACTERIUM INFANTIS 4 MG CAP PO SCH ×2 (08:00→21:19)
[2017-09-16] MEDS: MULTIPLE VITAMIN 1 EA TAB PO SCH (08:00)
[2017-09-16] MEDS: amLODIPine BESYLATE 5 MG TAB PO SCH (08:00)
[2017-09-16] MEDS: B COMPLEX 1 EA TAB PO SCH (08:00)
[2017-09-16] MEDS: CITALOPRAM HBR 20 MG TAB PO SCH (08:00)
[2017-09-16] MEDS: ASPIRIN EC 81 MG TAB PO SCH (08:01)
[2017-09-16] MEDS: ATENOLOL 25 MG TAB PO SCH ×2 (08:01→21:19)
[2017-09-16] MEDS: CHOLECALCIFEROL 2,000 IU TAB PO SCH (08:05)
[2017-09-16] MEDS ORDERED: POTASSIUM CHLORIDE 20mEq 10ML VIAL ONE (10:31)
[2017-09-16] MEDS ORDERED: SODIUM CHLORIDE 0.45% 1000ML 1,000 ML IVS ONE (10:31)
[2017-09-16] MEDS: POTASSIUM CHLORIDE INJ 20 MEQ 20 MEQ in SODIUM CHLORIDE 0.45% 1000ML 1,000 ML IVS PRN (10:32)
--- NOTE | 2017-09-16 19:13 | PN ---
DATE: 09/16/17 SUPERVISING PHYSICIAN: Jese Caban M.D. SUBJECTIVE: The patient continues with diarrhea although it has slowly decreased when compared to at time of admission. She has remained afebrile. She has had no nausea or vomiting. OBJECTIVE: VITAL SIGNS: Temperature 97.6, pulse 57, blood pressure 155/79, respirations 17, satting 97% on room air. I's and O's show a positive balance of 510 with 1510 in, 1000 out. Weight 74.3 kg. CHEST: Lungs are clear to auscultation. HEART: Regular rate and rhythm. ABDOMEN: Soft, non-tender. Positive bowel sounds. EXTREMITIES: No clubbing, cyanosis or edema. NEUROLOGIC : She is alert and oriented times three. LABORATORY: No chemistries were available for review today as CBC and electrolytes were showing to be normalizing. She did have 1 occult blood that was positive. She has only had 1 Clostridium Difficile that was negative for both antigen and toxin. Awaiting 2 additional specimens. Stool culture preliminary shows just reduced normal nova. RADIOLOGY: There are no additional radiographic studies. ASSESSMENT: 1. Acute cystitis failing to respond to outpatient treatment therapy with a history of chronic urinary tract infections with multidrug resistant organisms with the patient having a final culture showing Escherichia coli that was highly resistant to fluoroquinolones and only sensitive to parenteral forms of antibiotics with the patient having continued dysuria prior to admission and increasing symptoms, but now showing improvement with initiation of parenteral antibiotics. 2. Acute diarrhea possibly related to antibiotic usage versus a viral gastroenteritis with current stool studies showing negative for white cells and Clostridium Difficile. 3. Mild dehydration secondary to diarrhea improving with IV fluids. 4. Electrolyte imbalance with hypokalemia due to diarrhea and diuretic usage improving with supplementation. 5. Chronic renal failure with a baseline creatinine of 1.3, improved showing slight elevation on admission but again improved with IV fluids. 6. History of hypertension. 7. History of gastroesophageal reflux disease. 8. Chronic depression on medication treatment. 9. History of osteoarthritis. 10. History of right sided invasive breast cancer with a recent right modified radical mastectomy in January 2017. PLAN: Will continue for an additional 24 hours of IV antibiotics, including Rocephin. Will attempt to get 2 more samples for Clostridium Difficile studies to further reassure negative findings. She has advanced her oral intake but continues to have diarrhea, therefore will continue to provide IV fluids and again titrate off once she improves. I will go ahead and order another urine sample in the morning to further assure no recurrence of infection. After visiting with the Microbiology regarding stool cultures, did show a drastically reduced normal nova and overgrowth of possible yeast. Will need to continue to monitor this with final results anticipated tomorrow. Until discharge, will continue to monitor and treat appropriately. #[id number] [facility]
[2017-09-16] MEDS: SODIUM CHLORIDE 0.9% (FLUSH) 10 ML SYG IV PRN (21:16)
[2017-09-16] MEDS: NON-FORMULARY MEDICATION 1 EA MIS (Melatonin [Melatonin] 5 MG) PO SCH (21:19)
[2017-09-16] MEDS: PRAVASTATIN SODIUM 20 MG TAB PO SCH (21:19)
[2017-09-16] MEDS: CHLORDIAZEPOXIDE PO SCH (21:19)
[2017-09-16] MEDS: NON-FORMULARY MEDICATION 1 EA MIS (Anastrozole [Arimidex] 1 MG) PO SCH (21:19)
[2017-09-16] MEDS: AMITRIPTYLINE PO SCH (21:19)
[2017-09-16] MEDS: ENOXAPARIN SODIUM 40 MG/0.4 ML SYG SUBCU SCH (21:21)
[2017-09-17] MEDS ORDERED: SODIUM CHL 0.9% 50ML MIN-BAG+ 50 ML IVPB ONE (05:06)
[2017-09-17] MEDS ORDERED: cefTRIAXone SODIUM 1 GM VIAL ONE (05:06)
[2017-09-17] MEDS: cefTRIAXone SODIUM 1 GM in SODIUM CHL 0.9% 50ML MIN-BAG+ 50 ML IVPB SCH (05:41)
[2017-09-17] MEDS: SODIUM CHLORIDE 0.9% (FLUSH) 10 ML SYG IV PRN (05:41)
[2017-09-17] MEDS: PANTOPRAZOLE SODIUM TAB 40 MG PO SCH (06:03)
[2017-09-17] MEDS: NON-FORMULARY MEDICATION 1 EA MIS (Potassium Chloride [Micro-K] 8 MEQ) PO SCH ×2 (07:45→08:56)
[2017-09-17] MEDS: BIFIDOBACTERIUM INFANTIS 4 MG CAP PO SCH (08:56)
[2017-09-17] MEDS: CITALOPRAM HBR 20 MG TAB PO SCH (08:56)
[2017-09-17] MEDS: amLODIPine BESYLATE 5 MG TAB PO SCH (08:56)
[2017-09-17] MEDS: MULTIPLE VITAMIN 1 EA TAB PO SCH (08:56)
[2017-09-17] MEDS: ASPIRIN EC 81 MG TAB PO SCH (08:56)
[2017-09-17] MEDS: B COMPLEX 1 EA TAB PO SCH (08:56)
[2017-09-17] MEDS: CHOLECALCIFEROL 2,000 IU TAB PO SCH (08:57)
[2017-09-17] MEDS: ATENOLOL 25 MG TAB PO SCH (08:57)
[2017-09-17] MEDS ORDERED: SODIUM CHLORIDE 0.9% (FLUSH) 10 ML SYG IV SCH (09:00)
[2017-09-17 14:20] VITALS: BP 171/82; TEMP 96.6; O2SAT 100
--- NOTE | 2017-09-18 08:58 | DS ---
DISCHARGE DIAGNOSIS: 1. Acute urinary tract infection, having failed outpatient therapy with Escherichia coli on culture, highly resistant and requiring parenteral antibiotic for treatment. The patient showed clinical improvement during the treatment course. 2. Acute diarrhea, possibly related to fluoroquinolone medication given as treatment course as an outpatient with negative Clostridium difficile or fecal leukocytes noted. 3. Mild dehydration secondary to diarrhea, showing improvement with fluid supplementation. 4. History of hypokalemia, improving with supplementation. 5. Chronic renal insufficiency, improved with fluid hydration. 6. History of hypertension. 7. History of gastroesophageal reflux disease. 8. Chronic depression on medication treatment. 9. History of osteoarthritis. 10. History of right sided invasive breast cancer with a recent right modified radical mastectomy in January 2017. 11. Family history of colon cancer. 12. The patient has isolated rectal bleeding on occult testing. HISTORY OF PRESENT ILLNESS: This 67-year-old white female was admitted to the hospital from Dr. Maynard' office having failed outpatient therapy for an underlying urinary tract infection. A couple of days earlier, a culture had been obtained in the clinic and on the day of admission was showing E. coli species with resistance to most of the medications and especially the Cipro which she was started on in the clinic. After starting the Cipro, she had a significant loosening of stools with uncontrolled diarrhea with some incontinence even evident. The patient was admitted to the hospital to initiate parenteral antibiotic therapy to prevent this from actually getting worse. She has had similar problems in the past which will require ongoing evaluation if not improving. LABORATORY: White count 8,100, hemoglobin 12.5. Initial chemistry showed potassium 3.1 with supplement up to 3.7, BUN 24 down to 21 with hydration. Creatinine on discharge 1.08. Glucose 101, lactic acid 1.6. Liver enzymes were okay at the time of discharge with albumin 3.7. Urinalysis showed a trace of hematuria. Stool Hemoccults on two tests showed one positive and one negative. Culture did show E. coli on the outpatient culture and sensitivity, which was used for the treatment options. C. difficile was negative on two tests. Culture of the stool showed heavy growth of budding yeast. No pathogens noted. Fecal leukocytes were negative. Blood cultures negative. No x-rays taken. HOSPITAL COURSE: The patient was feeling much improved by the time of discharge and was ready to continue with outpatient management. She was treated with some probiotics and yogurt as well as specific third generation cephalosporin antibiotics for the E. coli urinary tract infection. PLAN: Discharge home to have followup with Dr. Maynard this next week. She is to increase her activity as tolerated and resume her usual diet. Recheck blood work for electrolytes and blood count in Dr. Maynard' office in the next one to two weeks. Some Hemoccult tests were given to the patient to bring back to the laboratory in the hospital for development. See home medication list. If recurring urinary tract infections are again noted, then consider urology clinic appointment for cystoscopy to rule out other significant problems within the bladder such as stones or fistula formation. Followup any blood that is noted in the stools. Try yogurt daily until the antibiotics are stopped. Drink plenty of fluids. Return if not improving. #[id number] [facility]
== END 2017-09-17 16:48 | disposition home or self-care (01) | DRG 690 ==
LOC: MS 16:43 → OBSVTOIN 16:43 → INTOOBSV 16:43
PROVIDERS: ADMIT Family Medicine; ATTEND Nurse Practitioner Family
DX: N30.00 Acute cystitis without hematuria (principal); K52.1 Toxic gastroenteritis and colitis; T36.8X5A Adverse effect of other systemic antibiotics, initial encounter; B96.20 Unspecified Escherichia coli [E. coli] as the cause of diseases classified elsewhere; R19.5 Other fecal abnormalities; E87.6 Hypokalemia; E86.0 Dehydration; I12.9 Hypertensive chronic kidney disease with stage 1 through stage 4 chronic kidney disease, or unspecified chronic kidney disease; N18.9 Chronic kidney disease, unspecified; K21.9 Gastro-esophageal reflux disease without esophagitis; F32.9 Major depressive disorder, single episode, unspecified; M19.90 Unspecified osteoarthritis, unspecified site; Z16.23 Resistance to quinolones and fluoroquinolones; Z85.3 Personal history of malignant neoplasm of breast; Y92.009 Unspecified place in unspecified non-institutional (private) residence as the place of occurrence of the external cause; Z80.0 Family history of malignant neoplasm of digestive organs; I34.1 Nonrheumatic mitral (valve) prolapse; Z88.1 Allergy status to other antibiotic agents; Z88.5 Allergy status to narcotic agent; Z79.82 Long term (current) use of aspirin; Z79.899 Other long term (current) drug therapy

== ENCOUNTER → 2017-09-21 | Outpatient (CLI) | payer OTHER | LOC: LAB.O 09:02 | PROVIDERS: ATTEND Family Medicine | DX: N39.0 Urinary tract infection, site not specified (principal); K62.5 Hemorrhage of anus and rectum; E87.6 Hypokalemia ==

== ENCOUNTER → 2017-11-22 | Outpatient (CLI) | payer OTHER ==
--- NOTE | 2017-11-23 12:45 | MAM ---
EXAM DESCRIPTION: 3D Screening BILATERAL : Digital Mammography. CLINICAL HISTORY: 67 years Female SCREENING . Right breast cancer diagnosed in January 2017 with mastectomy. No family history of breast cancer. Postmenopausal. Has taken HRT 5 or more years ago. Cyst aspiration and biopsy on the left breast. COMPARISON: Bilateral 2-D digital screening mammography 11/21/2016. Bilateral breast ultrasound 01/12/2017.. Reports from prior examinations also reviewed. TECHNIQUE: Left breast CC and MLO projection full-field images, 3-D tomosynthesis digital mammographic technique. Also left breast synthesized CC/ MLO full-field images. CAD not utilized. FINDINGS: Left breast parenchymal density pattern is: Heterogeneously dense breast tissue, which may obscure small masses. No skin thickening or nipple retraction axillary and intramammary lymph nodes. Solitary microcalcifications and coarse calcifications. No focal, stellate mass or density, focal asymmetry , and no suspicious microcalcifications left breast. Stable mammograms compared to prior study, taking into account differences in mammographic technique IMPRESSION: BI-RADS CATEGORY: 2 - BENIGN FINDINGS. FOLLOW UP: Routine digital left breast screening, one year interval from November 2017. Written communication explaining the IMPRESSION and follow-up, will be mailed to the patient and referring health care provider. According to the [employer], yearly mammograms are recommended starting at age 40 and continuing as long as a woman is in good health. Any breast change noted on a breast self-exam should be reported promptly to the patient's healthcare provider. Breast MRI is recommended for women with an approximately 20-25% or greater lifetime risk of breast cancer, including women with a strong family history of breast or ovarian cancer and women who have been treated for Hodgkin's disease. A negative mammographic report should not delay tissue diagnosis in patients with significant clinical history or physical findings. Extremely dense breast tissue limits the sensitivity of digital mammography. Electronically signed by: Abelino Bundy MD 11/23/2017 12:44 PM CDT
== END ==
LOC: MAMMO 09:00
PROVIDERS: ATTEND Family Medicine
DX: Z12.31 Encounter for screening mammogram for malignant neoplasm of breast (principal)

== ENCOUNTER → 2017-11-25 | Outpatient (CLI) | payer OTHER | LOC: GMATM 14:34 | PROVIDERS: ATTEND Nurse Practitioner Family | DX: N39.0 Urinary tract infection, site not specified (principal) ==

== ENCOUNTER → 2018-03-20 | Outpatient (CLI) | payer OTHER | LOC: GMAJ 10:29 | PROVIDERS: ATTEND Family Medicine | DX: N39.0 Urinary tract infection, site not specified (principal) ==

== ENCOUNTER → 2018-06-06 | Outpatient (CLI) | payer OTHER | LOC: GMAJ 11:54 | PROVIDERS: ATTEND Family Medicine | DX: M15.0 Primary generalized (osteo)arthritis (principal) ==

== ENCOUNTER → 2018-08-23 | Outpatient (CLI) | payer OTHER | LOC: GMAJ 17:25 | PROVIDERS: ATTEND Family Medicine | DX: R53.83 Other fatigue (principal) ==

== ENCOUNTER → 2019-02-05 | Outpatient (CLI) | payer OTHER ==
--- NOTE | 2019-02-05 13:46 | NM ---
EXAM DESCRIPTION: Bone Scan, Whole Body: Nuclear Medicine CLINICAL HISTORY: 68 years Female MALIGNANT NEOPLASM OF LOWER INNER QUADRANT OF RIGHT FEMALE BREAST COMPARISON: Radionuclide bone scan 02/09/2017. TECHNIQUE: Patient injected with 26.0 mCi of technetium 99M MDP IV. Injected in the posterior left hand. Delayed gamma camera images from various planes were obtained 3 hr after injection. FINDINGS: Activity in the bilateral ankle joints most likely degenerative disease and was seen on the prior study. Similar degenerative activity in the bilateral patellofemoral joints also seen previously. Activity in the bilateral wrist joints elbow joints and shoulders also consistent with degenerative changes and seen on the prior study. Minimal activity in the bilateral cervical spine consistent with facet degeneration or spondylosis stable since the prior study. Activity in the left posterior L5 or L5-S1 region no change from the prior study. No abnormal activity or uptake seen in the skull or facial bones, longer flat bones of the axial or appendicular skeleton. IMPRESSION: Abnormal activity is related to joint degeneration and spine spondylosis. No abnormal activity consistent with metastatic disease. Stable since prior radionuclide bone scan 02/09/2017.. Electronically signed by: Abelino Bundy MD 02/05/2019 1:43 PM CDT
== END ==
LOC: NM 09:00
PROVIDERS: ATTEND Internal Medicine Hematology & Oncology
DX: C50.311 Malignant neoplasm of lower-inner quadrant of right female breast (principal)

== ENCOUNTER → 2019-03-20 | Outpatient (CLI) | payer OTHER | LOC: GMATM 20:39 | PROVIDERS: ATTEND Nurse Practitioner Family | DX: N39.0 Urinary tract infection, site not specified (principal) ==

== ENCOUNTER → 2019-05-23 | Outpatient (CLI) | payer OTHER ==
--- NOTE | 2019-05-23 14:53 | MAM ---
EXAM DESCRIPTION: 3D Diagnostic, Left (accession [id number]), digital mammography. Breast,Left (accession [id number]): Ultrasound CLINICAL HISTORY: 69 yearsFemaleLUMP palpable lump middle third upper inner quadrant left breast. Right breast cancer with mastectomy 2017. Risk not calculated due to personal history of breast cancer. COMPARISON: Left breast screening tomosynthesis November 2018. TECHNIQUE: Left breast LM, CC, and MLO projection full-field images, digital tomosynthesis technique. Bilateral 2-D digital full-field images.: Left breast LM, CC, and MLO. CAD not available. . Transcutaneous scanning of the left breast region of interest utilizing landers-scale and Doppler modes. Scanning performed by the entertainment centre manager ; observation by Dr. Bundy. FINDINGS: Left breast parenchymal density pattern is: Scattered areas of fibroglandular density. No skin thickening or nipple retraction left axillary lymph nodes. Skin marker is visualized in the middle third and posterior third upper inner quadrant left breast approximately 11:00. No mammographic abnormalities associated with the marker. Circumscribed small lymph node lateral breast. Coarse calcification central breast of the posterior nipple line. No new focal, stellate mass or density, focal asymmetry , and no suspicious microcalcifications left breast stable mammograms compared to the prior study. Ultrasound: Heterogeneous mixture of fibroglandular tissues and fatty tissues. Scan specifically at the 11:00 sector, 10 cm from the nipple. No dominant solid mass or distinct cyst. No parenchymal edema or large calcifications. No overlying skin changes. IMPRESSION: Benign exam. BIRAD CATEGORY: 2 BENIGN FINDINGS. RECOMMENDATIONS: FOLLOW UP: Routine digital left breast mammographic screening, one year interval from April 2019. Written communication explaining the IMPRESSION and follow-up, will be mailed to the patient and referring health care provider. The FINDINGS and the FOLLOW-UP plan were reviewed in person with the patient after the examination. According to the [employer], yearly mammograms are recommended starting at age 40 and continuing as long as a woman is in good health. Any breast change noted on a breast self-exam should be reported promptly to the patient's healthcare provider. Breast MRI is recommended for women with an approximately 20-25% or greater lifetime risk of breast cancer, including women with a strong family history of breast or ovarian cancer and women who have been treated for Hodgkin's disease. A negative mammographic report should not delay tissue diagnosis in patients with significant clinical history or physical findings. Extremely dense breast tissue limits the sensitivity of digital mammography. Electronically signed by: Abelino Bundy MD 05/23/2019 2:52 PM CDT
== END ==
LOC: MAMMO 09:37
PROVIDERS: ATTEND Family Medicine
DX: R22.9 Localized swelling, mass and lump, unspecified (principal)
CPT/HCPCS: 76641; 77065; G0279

== ENCOUNTER → 2019-11-28 | Outpatient (CLI) | payer OTHER ==
--- NOTE | 2019-12-02 11:46 | MAM ---
EXAM DESCRIPTION: 3D Screening BILATERAL : Digital Mammography. CLINICAL HISTORY: 69 years Female SCREEN personal history of right breast cancer with mastectomy 2017. Previous palpable lump left breast. Benign findings. Sister with ovarian cancer. Menarche age 11. Childbirth age 25. Menopause age 30. HRT 5 or more years ago.. Lifetime risk of developing breast cancer (Tyrer-Cuzick model)(%): Not calculated due to personal history of breast cancer. COMPARISON: Digital screening left breast tomosynthesis November 2018. Diagnostic digital left breast tomosynthesis April 2019 with ultrasound. TECHNIQUE: Left breast CC and MLO projection full-field images, digital tomosynthesis mammographic technique. Left breast digital 2-D full-field MLO images. CAD available for 2-D images. FINDINGS: Left breast parenchymal density pattern is: Scattered areas of fibroglandular density. No skin thickening or nipple retraction. Solitary microcalcifications. Central coarse calcification. Intramammary lymph node. Group of benign type calcifications anterior breast. No new focal, stellate mass or density, focal asymmetry , and no suspicious microcalcifications left breast. Stable mammograms compared to prior study. Taking into account, differences in mammographic technique. IMPRESSION: Benign exam. BIRAD CATEGORY: 2 BENIGN FINDINGS. RECOMMENDATIONS: FOLLOW UP: Routine digital left breast mammographic screening, one year interval from November 2019. Written communication explaining the IMPRESSION and follow-up, will be mailed to the patient and referring health care provider. According to the [employer], yearly mammograms are recommended starting at age 40 and continuing as long as a woman is in good health. Any breast change noted on a breast self-exam should be reported promptly to the patient's healthcare provider. Breast MRI is recommended for women with an approximately 20-25% or greater lifetime risk of breast cancer, including women with a strong family history of breast or ovarian cancer and women who have been treated for Hodgkin's disease. A negative mammographic report should not delay tissue diagnosis in patients with significant clinical history or physical findings. Extremely dense breast tissue limits the sensitivity of digital mammography. Electronically signed by: Abelino Bundy MD 12/02/2019 11:45 AM CDT
== END ==
LOC: MAMMO 14:00
PROVIDERS: ATTEND Family Medicine
DX: Z12.31 Encounter for screening mammogram for malignant neoplasm of breast (principal)